=== PATIENT | male | born 1965 | race Two or more races ===

== ENCOUNTER 2023-06-08 11:13 | Emergency (ER) | payer MEDICAID ==
[~2023-06-08] VITALS: Ht 172.7 cm; Wt 77.2 kg
[2023-06-08 11:42] VITALS: BP 102/63; RESP 16; O2SAT 98
[2023-06-08] MEDS ORDERED: TETANUS-DIPTH-ACEL PERTUSSIS 0.5ML SYR Tdap IM ONE (13:15)
[2023-06-08 13:48] LABS: Basophils # (auto) 0.1 10 ^3/uL (0-0.2); Eosinophils # (auto) 0.2 10 ^3/uL (0-0.8); Eosinophils % (auto) 4.1 % (0.0-7.0); Hemoglobin 14.8 g/dL (13.5-17.5); Lymphocytes # (auto) 1.6 10 ^3/uL (0.4-5.4); Lymphocytes % (auto) 27.9 % (10.0-50.0); Mean Corpuscular Hemoglobin 32.6 pg (28.0-32.0); Mean Corpuscular Hgb Conc. 33.6 g/dL (32.0-36.0); Mean Corpuscular Volume 96.8 fL (80.0-100.0); Monocytes # (auto) 0.7 10 ^3/uL (0-1.3); Neutrophils # (auto) 3.1 10 ^3/uL (1.6-8.6); Nucleated Red Blood Cells % 0.1 %; Red Blood Cells 4.54 10^6/uL (4.5-5.90); Red Cell Distribution Width 13.5 % (11.8-14.3); White Blood Cell 5.6 10^3/uL (4.4-10.8)
[2023-06-08 14:03] LABS: Alanine Aminotransferase 65 U/L (7-40); Albumin 4.2 g/dL (3.2-4.8); Alkaline Phosphatase 83 U/L (46-116); Anion Gap 5 (5-15); Aspartate Aminotransferase 40 U/L (13-40); BUN/Creatinine Ratio 10.2 (10.0-20.0); Blood Urea Nitrogen 12 mg/dL (9-23); Calcium 9.7 mg/dL (8.7-10.4); Carbon Dioxide 28 mmol/L (20-30); Chloride 103 mmol/L (98-107); Glucose 139 mg/dL (74-106); Magnesium 1.8 mg/dL (1.6-2.6); Potassium 4.4 mmol/L (3.5-5.1); Sodium 136 mmol/L (136-145)
[2023-06-08 14:04] LABS: Bilirubin, Total 0.3 mg/dL (0.2-1.0); Total Protein 7.6 g/dL (5.7-8.2)
[2023-06-08 17:25] VITALS: PULSE 83
[2023-06-08] MEDS ORDERED: BACI1OIN45 EX (17:25)
[2023-06-08] MEDS ORDERED: METF-371 PO (17:25)
[2023-06-08] MEDS ORDERED: DICL50TA2 PO (17:25)
[2023-06-08] MEDS: SODIUM CHLORIDE 0.9% 1,000 ML IV ONE (20:08)
== END 2023-06-08 20:14 | disposition home or self-care (01) ==
LOC: ER 11:13 → EDBD 11:13 → ER 20:14
DX: S01.81XA Laceration without foreign body of other part of head, initial encounter (principal); R42 Dizziness and giddiness; E11.65 Type 2 diabetes mellitus with hyperglycemia; I10 Essential (primary) hypertension; R07.89 Other chest pain; F17.210 Nicotine dependence, cigarettes, uncomplicated; W18.39XA Other fall on same level, initial encounter; Y93.89 Activity, other specified; Y92.89 Other specified places as the place of occurrence of the external cause; Y99.8 Other external cause status
CPT/HCPCS: 12011; 36415; 70450; 71046; 72125; 80053; 82962; 83735; 85025; 93005; 99285; J2001

== ENCOUNTER 2023-06-17 10:22 | Inpatient (IN) | payer MEDICAID ==
[~2023-06-17] VITALS: Ht 167.6 cm; Wt 91.2 kg
[~2023-06-17 10:22] MED LIST: BACI1OIN45 EX; DICL50TA2 PO; METF-371 PO
[2023-06-17 11:00] VITALS: PULSE 71; RESP 13; O2SAT 99
[2023-06-17] MEDS: SODIUM CHLORIDE 0.9% 1,000 ML IV ONE ×2 (11:26→14:30)
[2023-06-17 11:50] LABS: Basophils # (auto) 0 10 ^3/uL (0-0.2); Basophils % (auto) 0.8 % (0.0-2.0); Eosinophils # (auto) 0.5 10 ^3/uL (0-0.8); Hematocrit 43.4 % (41.0-53.0); Hemoglobin 14.5 g/dL (13.5-17.5); Lymphocytes # (auto) 1.5 10 ^3/uL (0.4-5.4); Lymphocytes % (auto) 24.6 % (10.0-50.0); Mean Corpuscular Hgb Conc. 33.4 g/dL (32.0-36.0); Mean Corpuscular Volume 95.8 fL (80.0-100.0); Monocytes # (auto) 0.6 10 ^3/uL (0-1.3); Monocytes % (auto) 9.9 % (0.0-12.0); Neutrophils # (auto) 3.3 10 ^3/uL (1.6-8.6); Neutrophils % (auto) 56.7 % (37.0-80.0); Nucleated Red Blood Cells % 0.1 %; Red Blood Cells 4.53 10^6/uL (4.5-5.90); Red Cell Distribution Width 13.3 % (11.8-14.3); White Blood Cell 5.9 10^3/uL (4.4-10.8)
[2023-06-17 11:58] LABS: Chloride 106 mmol/L (98-107); Sodium 137 mmol/L (136-145)
[2023-06-17 11:59] LABS: Anion Gap 4 (5-15); Calcium 8.9 mg/dL (8.7-10.4); Carbon Dioxide 27 mmol/L (20-30)
[2023-06-17 12:04] LABS: BUN/Creatinine Ratio 10.4 (10.0-20.0); Blood Urea Nitrogen 10 mg/dL (9-23); Glucose 84 mg/dL (74-106)
[2023-06-17] MEDS ORDERED: ACETAMINOPHEN 325 MG TAB PO PRN (14:30)
[2023-06-17] MEDS ORDERED: MORPHINE SULFATE INJ 2 MG/ml SYRG IV PRN ×2 (14:30)
[2023-06-17] MEDS ORDERED: LORazepam 2MG/ML-1ML VIAL IV PRN (14:30)
[2023-06-17] MEDS ORDERED: ONDANSETRON HCL 4 MG/2 ML VIAL IV PRN (14:30)
[2023-06-17] MEDS ORDERED: HYDROcodone-ACET 5/325MG TAB PO PRN (14:30)
[2023-06-17] MEDS ORDERED: DOCUSATE SOD 100 MG CAP PO PRN (14:30)
[2023-06-17] MEDS ORDERED: NITROGLYCERIN 0.4 MG SL TAB SL PRN (14:30)
[2023-06-17] MEDS ORDERED: TAMS0.4C36 PO (15:08)
[2023-06-17] MEDS ORDERED: LABE100T7 PO (15:08)
[2023-06-17] MEDS: chlordiazePOXIDE HCL 25 MG CAP PO SCH (15:15)
[2023-06-17] MEDS ORDERED: DEXTROSE (50%) 50ML SYRG IV PRN (15:15)
[2023-06-17 16:40] VITALS: BP 174/103; PULSE 76; RESP 20; TEMP 96.7; TEMP 98; O2SAT 93
[2023-06-17] MEDS: LABETALOL HCL 200 MG TAB PO SCH (16:55)
[2023-06-17] MEDS: InsuLIN REG 1unit/0.01ml Soln (100units/ml) SC SCH (17:00)
[2023-06-17] MEDS: ACCU-CHEK COMFORT CURVE STRIP VI SCH (17:00)
[2023-06-17] MEDS ORDERED: hydrALAZINE HCL 20 MG/ML VL IV PRN (17:00)
[2023-06-17] MEDS ORDERED: PANT40T PO (18:08)
[2023-06-17] MEDS ORDERED: THIA100T26 PO (18:10)
[2023-06-17] MEDS: FOLIC ACID 1 MG, MULTIPLE VITAMIN 10 ML, MAGNESIUM SULF SDV 50% 8 MEQ, THIAMINE INJ 100... INJ SCH (18:51)
[2023-06-17 20:00] VITALS: PULSE 78
[2023-06-17 20:58] LABS: Urine Bacteria None Seen /hpf (None Seen)
[2023-06-17 21:00] VITALS: BP_SYST 158; BP_SYST 97; BP_DIAS 67; BP_DIAS 94; PULSE 82; RESP 20; TEMP 97.9; O2SAT 95
[2023-06-17 21:16] LABS: Urine Blood Negative /uL (Negative); Urine Clarity Clear (Clear); Urine Color Light-Yellow (Yellow); Urine Protein, UAD Negative (Negative); Urine Specific Gravity 1.007 (1.001-1.035); Urine Urobilinogen Normal (Negative); Urine WBC <1 /hpf (0 - 3); Urine pH 6.5 (5.0-9.0)
[2023-06-17 21:34] LABS: Amphetamine Screen, Urine Neg (NEGATIVE); Barbiturate Scree,Urine Neg (NEGATIVE); Benzodiazephine Screen, Urine Neg (NEGATIVE); Cannabinoid Screen, Urine Neg (NEGATIVE); Cocaine Screen, Urine Neg (NEGATIVE); Opiate Scree,Urine Neg (NEGATIVE); Phencyclidine Screen, Urine Neg (NEGATIVE)
[2023-06-18] VITALS (7 sets, daily range): BP systolic 114–159; BP diastolic 74–94; PULSE 71–87; RESP 16–20; TEMP 97.6–98.3; O2SAT 93–97
[2023-06-18 05:38] LABS: Basophils # (auto) 0 10 ^3/uL (0-0.2); Eosinophils # (auto) 0.5 10 ^3/uL (0-0.8); Eosinophils % (auto) 11.8 % (0.0-7.0); Hematocrit 43.5 % (41.0-53.0); Hemoglobin 14.8 g/dL (13.5-17.5); Lymphocytes # (auto) 1.5 10 ^3/uL (0.4-5.4); Lymphocytes % (auto) 33.1 % (10.0-50.0); Mean Corpuscular Hemoglobin 32.1 pg (28.0-32.0); Mean Corpuscular Volume 94.4 fL (80.0-100.0); Monocytes # (auto) 0.5 10 ^3/uL (0-1.3); Monocytes % (auto) 11.5 % (0.0-12.0); Neutrophils # (auto) 1.9 10 ^3/uL (1.6-8.6); Neutrophils % (auto) 42.6 % (37.0-80.0); Red Blood Cells 4.61 10^6/uL (4.5-5.90); Red Cell Distribution Width 13.2 % (11.8-14.3); White Blood Cell 4.5 10^3/uL (4.4-10.8)
[2023-06-18 05:52] LABS: Alanine Aminotransferase 36 U/L (7-40); Albumin 3.9 g/dL (3.2-4.8); Alkaline Phosphatase 58 U/L (46-116); Anion Gap 6 (5-15); Aspartate Aminotransferase 27 U/L (13-40); Blood Urea Nitrogen 8 mg/dL (9-23); Calcium 9.1 mg/dL (8.5-10.1); Carbon Dioxide 28 mmol/L (20-30); Chloride 105 mmol/L (98-107); Glucose 105 mg/dL (74-106); Potassium 3.8 mmol/L (3.5-5.1); Sodium 139 mmol/L (136-145)
[2023-06-18 05:53] LABS: Bilirubin, Total 0.6 mg/dL (0.2-1.0)
[2023-06-18] MEDS: chlordiazePOXIDE HCL 25 MG CAP PO SCH (09:44)
[2023-06-18] MEDS: PANTOPRAZOLE 40 MG TAB PO SCH (09:44)
[2023-06-18] MEDS ORDERED: TAMSULOSIN HYDROCHLORIDE 0.4 MG CAP PO SCH (10:00)
[2023-06-19 01:00] VITALS: BP 136/88; PULSE 72; RESP 18; TEMP 98.1; O2SAT 94
[2023-06-19 05:00] VITALS: BP 128/66; PULSE 76; RESP 16; TEMP 97.5; O2SAT 95
[2023-06-19 07:42] VITALS: PULSE 74
[2023-06-19 08:00] VITALS: PULSE 75; PULSE 78; RESP 20
[2023-06-19 09:00] VITALS: BP 117/74; PULSE 78; RESP 20; TEMP 97.2; O2SAT 98
[2023-06-19] MEDS: chlordiazePOXIDE HCL 25 MG CAP PO SCH (09:30)
[2023-06-19 10:30] VITALS: BP 117/74; PULSE 78; RESP 20; TEMP 97.2; O2SAT 98
[2023-06-20] MEDS ORDERED: chlordiazePOXIDE HCL 25 MG CAP PO SCH (07:00)
== END 2023-06-19 13:00 | disposition home or self-care (01) | DRG 204 ==
LOC: EDBD 10:22 → ER 10:22 → TELE 14:24 → TELE-EAST 16:13
PROVIDERS: ADMIT Internal Medicine Pulmonary Disease; ATTEND Internal Medicine Pulmonary Disease
DX: I95.1 Orthostatic hypotension (principal); E11.9 Type 2 diabetes mellitus without complications; F10.239 Alcohol dependence with withdrawal, unspecified; I10 Essential (primary) hypertension; N40.0 Benign prostatic hyperplasia without lower urinary tract symptoms; E66.9 Obesity, unspecified; R25.1 Tremor, unspecified; F17.210 Nicotine dependence, cigarettes, uncomplicated; Z79.4 Long term (current) use of insulin; Z68.32 Body mass index [BMI] 32.0-32.9, adult; Z79.899 Other long term (current) drug therapy; Y90.0 Blood alcohol level of less than 20 mg/100 ml; W18.39XA Other fall on same level, initial encounter; Y93.89 Activity, other specified; Y92.89 Other specified places as the place of occurrence of the external cause; Y99.8 Other external cause status
CPT/HCPCS: 36415; 70551; 80048; 80053; 80307; 80320; 81001; 82533; 82962; 83036; 84443; 84484; 85025; 87081; 93005; 96360; G0378; J1815